=== PATIENT | female | born 1980 | race Caucasian/White ===

== ENCOUNTER → 2019-05-29 09:31 | Outpatient (CLI) | payer OTHER, SELFPAY ==
--- NOTE | 2019-05-29 09:34 | NM_ITS ---
CLINICAL: 39-year-old female with reported history of neck fullness. I-123 THYROID UPTAKE and SCAN COMPARISON: None available FINDINGS: The patient was administered a 293 uCi I-123 capsule by mouth. The 4-hour I-123 radioactive iodine thyroidal uptake was calculated to be 1.4 % (normal 5 to 15 %). The 24-hour I-123 radioactive iodine thyroidal uptake was calculated to be 0.6 % (normal 5 to 40 %). The I-123 thyroid scan demonstrates minimal heterogeneous radiopharmaceutical concentration defined in the anterior neck-thyroid bed. NM/Thyroid Uptake Single or Mult IMPRESSION: 1. ABNORMAL DECREASED 4- and 24-hour I-123 radioactive iodine thyroidal uptakes. 2. The I-123 thyroid scan in conjunction with the calculated iodine uptake values is most consistent with the injurious phase of subacute and/or potentially chronic lymphocytic thyroiditis. (Joe et al, Endocrinol Rev 1: 411, 1980). Appropriate laboratory workup is recommended. Electronically Signed: Elieser De La Vega DO at 11:21 EST Tel , Service support ,
== END ==
PROVIDERS: Family Provider Family Medicine; PCP Family Medicine; Referring Provider Family Medicine; Visit Provider Family Medicine
DX: E05.90 Thyrotoxicosis, unspecified without thyrotoxic crisis or storm (principal)
CPT/HCPCS: 78012; A9516